=== PATIENT | female | born 1955 | race Caucasian/White ===

== ENCOUNTER 2021-04-30 10:39 | Outpatient (CLI) | payer MEDICAID, SELFPAY ==
--- NOTE | ~2021-04-30 | XR_ITS ---
. EXAMINATION: XR lg joint inject/asp w image DATE: 04/30/2021 11:47 INDICATION: Unilateral primary osteoarthritis of the right hip TECHNIQUE: A time-out was performed to verify the patient's name, date of , and procedure to b e performed. The procedure including the risks, benefits, and alternatives was discussed with the pat ient. Risks discussed included bleeding and infection. The patient understood the risks and agreed to proceed. The skin overlying the right hip joint was prepped and draped in usual sterile fashion. A nesthetic was administered with 1% lidocaine subcutaneously. A 22 G needle was advanced under fluoro scopic guidance into the joint. Injection of 1 mL of Omnipaque 240 confirmed intra-articular positio n of the needle. Subsequently, injectate consisting of 7 mm a 5:2 mixture of 1% lidocaine: 10 mg/mL Kenalog for a total dosage of 20 mg Kenalog was instilled. Washout of contrast was seen confirming in tra-articular administration. The needle was removed and the entry site was cleaned and dressed. The re were no immediate complications. Fluoroscopy exposure time was 0.1 minutes. The total number of im ages was 1. Total DAP was mGycm^2 FINDINGS: Real-time fluoroscopy demonstrates the needle in the 0.372 joint. Patient's pain prior to p rocedure:3/10. Patient's pain following the procedure: 0/10. IMPRESSION: 1. Successful right hip joint injection of local anesthetic and steroid with decrease in the patient' s presenting pain. Reviewed, dictated and finalized at location A. IMPRESSION: 1. Successful right hip joint injection of local anesthetic and steroid with de crease in the patient's presenting pain.
== END 2021-04-30 10:40 | disposition home or self-care (01) ==
PROVIDERS: PCP Internal Medicine Infectious Disease; Visit Provider Orthopaedic Surgery
DX: M16.11 Unilateral primary osteoarthritis, right hip (principal)
CPT/HCPCS: 20610; 77002; J3301; Q9966

== ENCOUNTER 2024-02-03 02:11 | Day surgery (SDC) | payer OTHER, SELFPAY ==
[2024-01-27 14:00] VITALS: BMI 25.8
--- NOTE | 2024-01-27 14:10 | PC.NURSE ---
Report to the Outpatient Waiting Room, entrance under the green pavilion located off [facility], at time __1030 on date _02/03/24 . Planned Procedure Time: ___1230 . Time changes happen often and if your time is changed the preop area will call you the afternoon before. - You and your visitor will be asked to self-screen and do not enter if you have any COVID symptoms. - A mask is optional within the hospital at this time. Patients may have clear liquids (water, carbonated beverages, clear teas, apple juice) until 3 hours prior to surgery (0930 AM) with a maximum of 20 ounces. - No food from midnight until time of surgery - Infants may have breast milk until 4 hours before surgery, formula 6 hours prior to surgery. - Children will be allowed to drink immediately following surgery. If applicable, please bring a bottle or sippy cup to assist with drinking. Juice, water, soda, and popsicles are readily available. For infants on formula, please bring formula the day of surgery. Pacifiers are allowed. Take the following medications with a SIP of water the morning of surgery: LEVOTHYROXINE DO NOT STOP ANY OF YOUR OTHER PRESCRIPTION MEDICATIONS PRIOR TO SURGERY ?EXCEPT THE FOLLOWING Medications to discontinue per ANESTHESIA - _VITAMINS, SUPPLEMENTS 3 DAYS PRIOR TO SURGERY Date to take last dose Please no make-up, nail hebrew, hairspray, perfume, deodorant, or body powder the day of surgery. No jewelry (including any body piercings) or valuables the day of surgery, leave them at home. Please take a shower or bath the night before, or the morning of, surgery with an antibacterial soap. Wear comfortable, loose fitting clothing. Children are encouraged to wear pajamas. - Jewelry must be removed prior to entering the operating room. Rings and piercings that are not removed may be cut off. - The hospital will not accept responsibility for valuables. - Please leave all valuables, including medications, at home the day of surgery. If you are going home after surgery, a licensed hazmat cdl a driver must drive you home. - NO public transportation without another adult if you receive anesthesia. - We recommend that an adult stay with you for 24 hours following discharge. - We also recommend that you do not drive, make important decision, drink alcoholic beverages, or take any drugs that were not prescribed by your health care provider for at least 24 hours after your discharge time. For Pediatric surgeries, we recommend two adults accompany the child home. Follow any additional instructions given to you from your surgeon. If you or anyone in your household have experienced Covid symptoms in the past week, please notify your surgeon or the nurse liaison at the phone number below for possible testing. Telephone instructions given to ____PT and asked if any additional questions and then verbalized understanding. Patient advised to call surgeon office or pre surgery nurse liaison [phone] if any additional questions.
--- NOTE | 2024-02-03 07:11 | WPDHPUPDATE1 ---
History and Physical Update Update Date/Time: 02/03/24 07:11 History and Physical has been reviewed, including an updated exam of the patient. There are NO changes in the patient's condition. Risks, benefits, and alternatives have been discussed and questions answered. Patient agrees to proceed with procedure.
[2024-02-03 08:41] VITALS: BP 128/59; PULSE 69; RESP 14; TEMP 36.6; O2SAT 100; BMI 24.9
[2024-02-03] MEDS: LACTATED RINGERS 1,000 ML 30 ML IV CONT (09:30)
--- NOTE | 2024-02-03 09:40 | WPDANESEPPF ---
Anes - Initial Pre Proc Eval Procedure: Operation Date: 02/03/24 10:30 Proposed Procedures p Partial Plantar Fasciectomy Left Foot - Sterling Becerril Jr., DPM Date/Time: 02/03/24 09:40 Surgeon: Sterling Becerril Jr., DPM Pre Op Diagnosis: Plantar Fasciitis Left Foot Patient Data Age: 69 Gender: F Height: 1.69 m Weight: 71.05 kg Last Vital Signs Temp 36.6 C 02/03/24 08:41 Pulse 69 02/03/24 08:41 Resp 14 02/03/24 08:41 BP 128/59 L 02/03/24 08:41 Pulse Ox 100 02/03/24 08:41 O2 Del Method Room Air 02/03/24 08:41 Allergies Allergy/AdvReac Type Severity Reaction Status Date / Time Sulfa (Sulfonamide Allergy Unknown SCALP Verified 01/27/24 13:54 Antibiotics) SWELLING/ITCHING Home Medications Medication Instructions Recorded Confirmed Type levothyroxine 75 mcg capsule 75 mcg PO DAILY 03/25/21 01/27/24 History D3 With K2 2 tab-cap DAILY 01/27/24 History Marlow 3 1,600 units DAILY 01/27/24 01/27/24 History ascorbic acid (vitamin C) 1,000 mg 2 g PO DAILY 01/27/24 01/27/24 History tablet (Vitamin C) cyanocobalamin (vitamin B-12) 3,000 mcg PO DAILY 01/27/24 01/27/24 History 3,000 mcg capsule iodine (kelp) 200 tablet PO DAILY 01/27/24 01/27/24 History magnesium oxide 400 mg PO DAILY 01/27/24 01/27/24 History oregano oil 50 mg-flaxseed oil 25 1 cap PO DAILY 01/27/24 01/27/24 History mg capsule vit 1 tablet PO 01/27/24 History [id number] 500 mg-50 mg-25 mg-40 mg tablet (Bioflex) Patient hx anesthesia problems: none Family hx anesthesia problems: none Results Review: All pre-operative results and documents have been reviewed as part of the pre-operative evaluation. [facility] Past Medical History Medical History Arthritis, lumbar spine Degenerative arthritis of knee, bilateral Osteoarthritis of right hip Pain in right knee Thyroid disorder Surgical History Surgical History History of left hip replacement 2014 - Dr. Diallo Family History Family History Sibling Family history of alcoholism Family history of seizure disorder Father Family history of throat cancer, Onset Age: 75 Social History Social History Smoking packs per day: 1.5 Smoking cigarettes per day: 30.0 Years smoked: 35 Smoking pack-years: 52.50 Smoking status: Former smoker Tobacco type: cigarettes Second hand tobacco smoke exposure: No Smoking end date: 09/26/08 Alcohol intake: current Drinks per week: 3 Substance use: never Substance use type: does not use Living arrangements: alone Occupation/Education: occupation Additional occupation/education comments: operations trainer Gender identity (if verbalized by the patient): Female Spiritual care concerns: No Anes - Eval Final PreProcedure Day of Procedure 02/03/24 09:40 Patient weight: normal Heart: regular rate and rhythm Lungs: decreased breath sounds Airway: Mallampati scale class II Neurological: alert and oriented Last oral intake: >/= 8 hours ASA classification: III Emergent: no Anesthetic plan: proceed Anesthesia type and monitoring: general GIVS and standard monitoring Results Review: All pre-operative results and documents have been reviewed as part of the pre-operative evaluation. Informed Consent: The patient's anesthetic plan and its attendant risks and benefits were discussed with the patient/family/POA. Questions were solicited and answers provided to the satisfaction of the patient/family/POA.
[2024-02-03] MEDS: ceFAZolin 2 GM/D5W 50 ML 2 GM/50 ML BAG IVPB (10:12)
[2024-02-03] MEDS: LIDOCAINE HCL 2% LOCAL INJ 20 ML VIAL INFILTRATE (10:32)
[2024-02-03 11:02] VITALS: BP 90/55; PULSE 73; RESP 16
--- NOTE | 2024-02-03 11:27 | W.PM.PROC2 ---
Procedure Note - Detailed Date of Procedure 02/03/24 Pre-op Diagnosis Plantar Fasciitis Left Foot Post-op Diagnosis Same Procedure Performed Partial plantar fasciectomy left foot Surgeon Sterling Becerril Jr., DPM Anesthesia MAC and Local Indications Recalcitrant inferior left heel pain Description of Procedure Under mild sedation, the patient was brought in to the operating room, placed on the operating table in the supine position. A pneumatic ankle tourniquet was placed about the patient's ankle. Following general anesthesia, local anesthesia was obtained about the affected lower extremity utilizing 20 mL of a one to mix of 2% Lidocaine plain and 0.5% Marcaine plain to the tibial nerve. The foot was then scrubbed, prepped, and draped in the usual aseptic manner. An Esmarch bandage was then used to exsanguinate the patient's foot and the pneumatic ankle tourniquet was then inflated. Next, an incision was made starting distal to the medial tubercle of the calcaneus extending distally 3cm. All bleeders were cauterized as necessary. Next the dissection was continued down to the plantar fascia it was exposed medially and laterally with [employer] [place] retractors. Two thirds of the medial plantar fascia was transected and a 4mm portion was also cut and discarded. The wound site was flushed with sterile saline. The deep subcutaneous tissue was reapproximated with 3.0 Vicryl and the skin was reapproximated with 2.0 Prolene and 3.0 Prolene in Vertical mattress and Simple interrupted suture technique. Upon completion of the procedure, the plantar incision was dressed with adaptic, 4x4 gauze, kerlix and coban. The pneumatic ankle tourniquet was then deflated and a prompt hyperemic response was noted to all digits of the affected foot. A CAM Walker boot was then applied. The patient did very well with the procedure and the anesthesia. The patient was transferred to the recovery room with vital signs stable and vascular status intact to all toes of the affected foot. Following a period of postoperative monitoring, the patient will be discharged home on the following written and oral postoperative instructions: 1. The patient should keep the dressing clean, dry, and intact. Use a cast protector bag with showers. 2. The patient will be strictly protected weight bearing with CAM walker boot. 3. Patient should ice and elevate the affected foot when at rest. 4. The patient is to contact Dr. Becerril for all postop care and if any problems arise. 5. Prescriptions were written for Percocet 5/325 dispensed 40 to be taken 1 p.o. q.4-6 hours as needed for severe pain. Implants None Estimated Blood Loss 1 Drains No Packing No Pathology None sent Complications No immediate complications Condition Stable Disposition Same day
[2024-02-03 11:30] VITALS: BP 102/65; PULSE 66; RESP 20
[2024-02-03 11:51] VITALS: BP 115/70; PULSE 67; RESP 20
== END 2024-02-03 11:53 | disposition home or self-care (01) ==
PROVIDERS: PCP Family Medicine Sports Medicine; Visit Provider Podiatrist Foot & Ankle Surgery
PROC: (CPT 28119; principal; 2024-02-03 10:30)
DX: M72.2 Plantar fascial fibromatosis (principal); Z87.891 Personal history of nicotine dependence
CPT/HCPCS: 28060; J0690; J1100; J1596; J2250; J2405; J2704; J3010; J7120